=== PATIENT | female | born 1990 | race Caucasian/White ===

== ENCOUNTER 2017-03-14 11:04 | Emergency (ER) | payer BC, OTHER ==
[2017-03-14 11:16] VITALS: BP 134/71
--- NOTE | 2017-03-14 11:40 | EDM.PDOC ---
ED HPI GENERAL MEDICAL PROBLEM - General Chief Complaint: Abdominal Pain Stated Complaint: LOWER ABDOMINAL PAIN Time Seen by Provider: 03/14/17 11:33 Source of Information: Reports: Patient History Limitations: Reports: No Limitations - History of Present Illness INITIAL COMMENTS - FREE TEXT/NARRATIVE: 26-year-old female presents for evaluation treatment of right lower quadrant abdominal pain. Patient reports that the pain started yesterday. It was more mild at first. Started in her right lower quadrant. Patient reports today while at work the pain significantly worsened. Currently complaining of pain to the right lower quadrant that is radiated to the suprapubic area. She reports movement seems to make the pain worse. Reports currently the pain is "not too bad". She states that the pain waxes and wanes. Patient reports associated symptoms of back pain and diaphoresis. She denies any fevers, chills, nausea, vomiting, constipation, diarrhea, dysuria or hematuria. Patient states that she has not had much of an appetite. Her last intake was around 6:30 AM. She have to donut. Last menstrual period was proximally 2 weeks ago. Patient has not had any surgeries or abdomen. Treatments SPEECH PATHOLOGY ASSISTANT: Reports: Other (see below) Other Treatments SPEECH PATHOLOGY ASSISTANT: ibuprofen 800 mg at 0900 right lower quadrant/mid belly button Pain Score (Numeric/FACES): 5 - Related Data Allergies Allergy/AdvReac Type Severity Reaction Status Date / Time No Known Allergies Allergy Verified 03/14/17 11:16 Home Meds: Home Meds . [No Known Home Meds] 12/26/14 [History] Past Medical History - Past Health History Medical/Surgical History: Denies Medical/Surgical History Social & Family History - Family History Family Medical History: Noncontributory - Tobacco Use Smoking Status *Q: Never Smoker - Caffeine Use Caffeine Use: Reports: Coffee, Soda - Recreational Drug Use Recreational Drug Use: No ED ROS GENERAL - Review of Systems Review Of Systems: See Below Constitutional: Reports: Diaphoresis, Decreased Appetite. Denies: Fever GI/Abdominal: Reports: Abdominal Pain (RLQ), Decreased Appetite. Denies: Constipation, Diarrhea, Hematochezia, Melena, Nausea, Vomiting : Reports: Other (LMP 2 weeks ago). Denies: Dysuria, Hematuria ED EXAM, GI/ABD - Physical Exam Exam: See Below Exam Limited By: No Limitations General Appearance: Alert, WD/WN, No Apparent Distress Respiratory/Chest: No Respiratory Distress, Lungs Clear, Normal Breath Sounds Cardiovascular: Normal Peripheral Pulses, Regular Rate, Rhythm, No Murmur GI/Abdominal Exam: Normal Bowel Sounds, Soft, Non-Tender, Other (RLQ tenderness ; + psosas sign, - obturator sign, no pain with heel percussion). No: Guarding , Rebound Neurological: Alert, Oriented, Normal Cognition Psychiatric: Normal Affect, Normal Mood Skin Exam: Warm, Dry, Normal Color Course - Vital Signs Last Recorded V/S: Last Vital Signs Temp 36.3 C 03/14/17 11:12 Pulse 88 03/14/17 11:12 Resp 18 03/14/17 11:12 BP 134/71 03/14/17 11:12 Pulse Ox 100 03/14/17 11:12 - Orders/Labs/Meds Orders: Active Orders 24 hr Category Date Time Status Peripheral IV Care [RC] . DIRECTED Care 03/14/17 11:41 Ordered Abdomen Pelvis w Cont [CT] Stat Exams 03/14/17 11:41 Ordered Sodium Chloride 0.9% [Saline Flush] Med 03/14/17 11:41 Ordered 10 ml FLUSH ASDIRECTED PRN Peripheral IV Insertion Adult [OM.PC] Routine Oth 03/14/17 11:41 Ordered Medication Orders Sodium Chloride (Saline Flush) 10 ml FLUSH ASDIRECTED PRN PRN Reason: Keep Vein Open Last Admin: 03/14/17 13:15 Dose: 10 ml Admin: 03/14/17 12:02 Dose: 10 ml Labs: Laboratory Tests 03/14/17 03/14/17 03/14/17 Range/Units 11:15 11:15 11:25 WBC 8.84 (3.98-10.04) K/mm3 RBC 4.37 (3.98-5.22) M/mm3 Hgb 13.6 (11.2-15.7) gm/L Hct 39.7 (34.1-44.9) % MCV 90.8 (79.4-94.8) fl MCH 31.1 (25.6-32.2) pg MCHC 34.3 (32.2-35.5) g/dl RDW Std Deviation 39.4 (36.4-46.3) fL Plt Count 140 L (182-369) K/mm3 MPV 12.6 H (9.4-12.3) fl Neutrophils % (Manual) 73 H (40-60) % Band Neutrophils % 0 (0-10) % Lymphocytes % (Manual) 26 (20-40) % Atypical Lymphs % 0 % Monocytes % (Manual) 1 L (2-10) % Eosinophils % (Manual) 0 L (0.7-5.8) % Basophils % (Manual) 0 L (0.1-1.2) Platelet Estimate Adequate RBC Morph Comment Normal Sodium 141 (136-145) mEq/L Potassium 3.1 L (3.5-5.1) mEq/L Chloride 104 (98-107) mEq/L Carbon Dioxide 26 (21-32) mEq/L Anion Gap 14.1 (5-15) BUN 9 (7-18) mg/dL Creatinine 0.9 (0.55-1.02) mg/dL Est Cr Clr Drug Dosing 86.27 mL/min Estimated GFR (MDRD) > 60 (>60) mL/min BUN/Creatinine Ratio 10.0 L (14-18) Glucose 93 (74-106) mg/dL Calcium 9.3 (8.5-10.1) mg/dL Total Bilirubin 0.6 (0.2-1.0) mg/dL AST 21 (15-37) U/L ALT 20 (14-59) U/L Alkaline Phosphatase 52 (46-116) U/L C-Reactive Protein < 0.2 (<1.0) mg/dL Total Protein 7.6 (6.4-8.2) g/dl Albumin 4.3 (3.4-5.0) g/dl Globulin 3.3 gm/dL Albumin/Globulin Ratio 1.3 (1-2) Urine Color (Yellow) Urine Appearance (Clear) Urine pH (5.0-8.0) Ur Specific [place] (1.005-1.030) Urine Protein (Negative) Urine Glucose (UA) (Negative) Urine Ketones (Negative) Urine Occult Blood (Negative) Urine Nitrite (Negative) Urine Bilirubin (Negative) Urine Urobilinogen (0.2-1.0) Ur Leukocyte Esterase (Negative) Urine RBC (0-5) /hpf Urine WBC (0-5) /hpf Ur Epithelial Cells (0-5) /hpf Ur Squamous Epith Cells (0-5) /hpf Urine Bacteria (FEW) /hpf Urine Mucus (FEW) /hpf Urine HCG, Qual Negative (NEGATIVE) 03/14/17 Range/Units 11:25 WBC (3.98-10.04) K/mm3 RBC (3.98-5.22) M/mm3 Hgb (11.2-15.7) gm/L Hct (34.1-44.9) % MCV (79.4-94.8) fl MCH (25.6-32.2) pg MCHC (32.2-35.5) g/dl RDW Std Deviation (36.4-46.3) fL Plt Count (182-369) K/mm3 MPV (9.4-12.3) fl Neutrophils % (Manual) (40-60) % Band Neutrophils % (0-10) % Lymphocytes % (Manual) (20-40) % Atypical Lymphs % % Monocytes % (Manual) (2-10) % Eosinophils % (Manual) (0.7-5.8) % Basophils % (Manual) (0.1-1.2) Platelet Estimate RBC Morph Comment Sodium (136-145) mEq/L Potassium (3.5-5.1) mEq/L Chloride (98-107) mEq/L Carbon Dioxide (21-32) mEq/L Anion Gap (5-15) BUN (7-18) mg/dL Creatinine (0.55-1.02) mg/dL Est Cr Clr Drug Dosing mL/min Estimated GFR (MDRD) (>60) mL/min BUN/Creatinine Ratio (14-18) Glucose (74-106) mg/dL Calcium (8.5-10.1) mg/dL Total Bilirubin (0.2-1.0) mg/dL AST (15-37) U/L ALT (14-59) U/L Alkaline Phosphatase (46-116) U/L C-Reactive Protein (<1.0) mg/dL Total Protein (6.4-8.2) g/dl Albumin (3.4-5.0) g/dl Globulin gm/dL Albumin/Globulin Ratio (1-2) Urine Color Dark yellow (Yellow) Urine Appearance Clear (Clear) Urine pH 6.0 (5.0-8.0) Ur Specific [place] > or = 1.030 (1.005-1.030) Urine Protein 1+ H (Negative) Urine Glucose (UA) Negative (Negative) Urine Ketones 1+ H (Negative) Urine Occult Blood Negative (Negative) Urine Nitrite Negative (Negative) Urine Bilirubin 1+ H (Negative) Urine Urobilinogen 0.2 (0.2-1.0) Ur Leukocyte Esterase Trace H (Negative) Urine RBC 0-5 (0-5) /hpf Urine WBC 5-10 H (0-5) /hpf Ur Epithelial Cells 5-10 H (0-5) /hpf Ur Squamous Epith Cells 5-10 H (0-5) /hpf Urine Bacteria Few (FEW) /hpf Urine Mucus Not seen (FEW) /hpf Urine HCG, Qual (NEGATIVE) Meds: Medications Generic Name Dose Route Start Last Admin Trade Name Freq PRN Reason Stop Dose Admin Sodium Chloride 10 ml 03/14/17 11:41 03/14/17 13:15 Saline Flush FLUSH 10 ml ASDIRECTED PRN Administration Keep Vein Open Discontinued Medications Generic Name Dose Route Start Last Admin Trade Name Freq PRN Reason Stop Dose Admin Diatrizoate Meglum/Diatrizoate Sod 90 ml 03/14/17 13:04 03/14/17 13:15 Gastrografin 37% PO 03/14/17 13:05 90 ml ONETIME ONE Administration Sodium Chloride 1,000 mls @ 999 mls/hr 03/14/17 11:41 03/14/17 12:02 Normal Saline IV 03/14/17 12:41 999 mls/hr ONETIME ONE Administration Iopamidol 125 ml 03/14/17 13:04 03/14/17 13:15 Isovue-300 (61%) IVPUSH 03/14/17 13:05 125 ml ONETIME ONE Administration - Radiology Interpretation Free Text/Narrative:: CT of the abdomen and pelvis with IV and oral contrast impression per [facility]: Probable degenerating cyst in the right ovary. Incidental/nonacute findings. CT Results Date: 03/14/17 - Re-Assessments/Exams Free Text/Narrative Re-Assessment/Exam: 03/14/17 14:16 I reviewed the labs and the CT results with the patient. She has declined medication for pain throughout her ER stay. We will discharge her home at this time. Discharge instructions as documented. Departure - Departure Time of Disposition: 14:17 Disposition: Home, Self-Care 01 Condition: Good Clinical Impression: Ovarian cyst - Discharge Information Referrals: PCP,None [Primary Care Provider] - Rosa Maria Hollis PA-C [Ordering Only Provider] - Forms: ED Department Discharge Additional Instructions: [id number] Tylenol or Motrin as needed for pain relief. make sure you are drinking plenty of fluids. Follow-up with your OB provider in the next 2-3 weeks for a recheck of your symptoms. Please return to the ER if your symptoms change or worsen. - My Orders Last 24 Hours: My Active Orders 03/14/17 11:41 Peripheral IV Care [RC] . DIRECTED Abdomen Pelvis w Cont [CT] Stat Sodium Chloride 0.9% [Saline Flush] 10 ml FLUSH ASDIRECTED PRN Peripheral IV Insertion Adult [OM.PC] Routine - Assessment/Plan Last 24 Hours: My Active Orders 03/14/17 11:41 Peripheral IV Care [RC] . DIRECTED Abdomen Pelvis w Cont [CT] Stat Sodium Chloride 0.9% [Saline Flush] 10 ml FLUSH ASDIRECTED PRN Peripheral IV Insertion Adult [OM.PC] Routine
[2017-03-14] MEDS ORDERED: Sodium Chloride 0.9% 1,000 ML IV ONE (11:41)
[2017-03-14] MEDS: Sodium Chloride 0.9% 10 ML Syringe FLUSH PRN ×2 (12:02→13:15)
[2017-03-14] MEDS ORDERED: Diatrizoate Meglumine/Diatrizoate Sodium 37% 120 ML Bottle PO ONE (13:04)
[2017-03-14] MEDS ORDERED: Iopamidol 612 MG/ML 150 ML Bottle IVPUSH ONE (13:04)
--- NOTE | 2017-03-18 10:16 | CT ---
CT abdomen and pelvis Technique: Multiple axial sections were obtained from above the dome of the diaphragm inferiorly through the pubic symphysis. Intravenous and oral contrast was utilized. Delayed images were obtained through the bladder. Comparison: No previous abdominal imaging. Findings: Small portion of the visualized lung bases are clear. Liver shows no focal parenchymal abnormality. Gallbladder contains no calcified gallstones. Spleen appears within normal limits. Adrenal glands show no nodule. Pancreas is within normal limits. Kidneys show symmetric contrast enhancement without abnormality. Aorta shows no aneurysmal dilatation. No retroperitoneal adenopathy or mesenteric abnormalities are seen. Appendix is seen which appears within normal limits. No pelvic mass or adenopathy is seen. No free fluid or inflammatory change is seen within the abdomen or within the pelvis. Delayed images show contrast within the distal ureters and within the bladder. Bone window settings were reviewed which appear within normal limits for the patient's age. Impression: 1. Nothing acute is identified on CT study of the abdomen and pelvis. Diagnostic code #1 I agree with preliminary report issued by [facility] ([facility] report finalized on 03/14/17, 3:09 PM Central Time)
== END 2017-03-14 14:20 | disposition home or self-care (01) ==
LOC: JD.ED 11:04
DX: N83.201 Unspecified ovarian cyst, right side (principal)
CPT/HCPCS: 36415; 74177; 80053; 81001; 81025; 85025; 86140; 96360; 99284; J7040; J7050; Q9963; Q9967; 99283

== ENCOUNTER 2017-12-07 07:19 | Inpatient (IN) | payer BC ==
--- NOTE | 2017-12-07 07:57 | PCM.PREANE ---
Preanesthetic Assessment - Anesthesia/Transfusion/Family Hx Anesthesia History: No Prior Anesthesia Transfusion History: No Prior Transfusion(s) - Review of Systems General: No Symptoms Pulmonary: No Symptoms Cardiovascular: No Symptoms Gastrointestinal: No Symptoms Neurological: No Symptoms Other: Reports: None - Physical Assessment NPO Status Date: 12/07/17 NPO Status Time: 02:00 Pulse: 63 Blood Pressure: 135/83 Height: 1.68 m Weight: 73.028 kg ASA Class: 2 Mental Status: Alert & Oriented x3 Airway Class: Mallampati = 1 Dentition: Reports: Normal Dentition Thyro-Mental Finger Breadths: 3 Mouth Opening Finger Breadths: 3 ROM/Head Extension: Full Lungs: Clear to Auscultation Cardiovascular: Regular Rate - Allergies Allergies/Adverse Reactions: Allergies Allergy/AdvReac Type Severity Reaction Status Date / Time No Known Allergies Allergy Verified 12/07/17 07:57 - Acknowledgements Anesthesia Type Planned: Epidural Pt an Appropriate Candidate for the Planned Anesthesia: Yes Alternatives and Risks of Anesthesia Discussed w Pt/Guardian: Yes Pt/Guardian Understands and Agrees with Anesthesia Plan: Yes PreAnesthesia Questionnaire - Past Health History Medical/Surgical History: Denies Medical/Surgical History - HOME MEDS Home Medications: Home Meds L.acidoph,Paracasei, B.lactis [Probiotic] 1 cap PO DAILY 12/07/17 [History] Pnv No.122/Iron/Folic Acid [ Multi Tablet] 1 each PO DAILY 12/07/17 [ History]
[2017-12-07] MEDS ORDERED: Nalbuphine 20 MG/ML 1 ML Syringe IVPUSH PRN (07:59)
[2017-12-07] MEDS ORDERED: Sodium Chloride 0.9% 10 ML Syringe FLUSH PRN (07:59)
[2017-12-07] MEDS ORDERED: Ondansetron 4 MG/2 ML SDV IVPUSH PRN (07:59)
[2017-12-07] MEDS ORDERED: Lidocaine 1% 50 ML MDV INJECT ONE (07:59)
[2017-12-07] MEDS ORDERED: Oxytocin/Lactated Ringers 10 UNIT/1,000 ML BAG IV SCH ×2 (08:00)
--- NOTE | 2017-12-07 09:18 | PCM.LDHP ---
L&D History of Present Illness - General Date of Service: 12/07/17 Admit Problem/Dx: Patient Status Order with Admit Dx/Problem 12/07/17 08:15 Patient Status [ADT] Routine Admission Diagnosis/Problem Admission Diagnosis/Problem Source of Information: Patient History Limitations: Reports: No Limitations - History of Present Illness Introduction:: 27 year old female here with active labor. Doing well. 40w1d. GBS negative. - Related Data Allergies/Adverse Reactions: Allergies Allergy/AdvReac Type Severity Reaction Status Date / Time No Known Allergies Allergy Verified 12/07/17 07:57 Home Medications: Home Meds L.acidoph,Paracasei, B.lactis [Probiotic] 1 cap PO DAILY 12/07/17 [History] Pnv No.122/Iron/Folic Acid [ Multi Tablet] 1 each PO DAILY 12/07/17 [ History] Past Medical History - Past Health History Medical/Surgical History: Denies Medical/Surgical History Social & Family History - Family History Family Medical History: Noncontributory - Caffeine Use Caffeine Use: Reports: Coffee, Soda H&P Review of Systems - Review of Systems: Review Of Systems: See Below General: Reports: No Symptoms HEENT: Reports: No Symptoms Pulmonary: Reports: No Symptoms Cardiovascular: Reports: No Symptoms Gastrointestinal: Reports: No Symptoms Genitourinary: Reports: No Symptoms Musculoskeletal: Reports: No Symptoms Skin: Reports: No Symptoms Psychiatric: Reports: No Symptoms Neurological: Reports: No Symptoms Hematologic/Lymphatic: Reports: No Symptoms Immunologic: Reports: No Symptoms L&D Exam - Exam Exam: See Below - Vital Signs Vital Signs: Last Vital Signs Temp Pulse 63 12/07/17 08:11 Resp BP 135/83 12/07/17 08:11 Pulse Ox Weight: 73.028 kg - OB Specific Contraction Intensity: Moderate to Strong Movement: Active Heart Tones: Present Heart Rate (FHR) Variability: Moderate (6-25 bmp) Presentation: Vertex - Lopez Score Lopez Score Cervix Position: Midposition Lopez Score Effacement: 51-70% Lopez Score Dilation: 3-4 cm Lopez Score Infant's Station: -2 - Exam General: Alert, Oriented HEENT: PERRLA, Conjunctiva Clear, EACs Clear, EOMI, Hearing Intact, Mucosa Moist & [place], Nares Patent, Normal Nasal Septum, Posterior Pharynx Clear, TMs Clear Neck: Supple, Trachea Midline Lungs: Clear to Auscultation, Normal Respiratory Effort Cardiovascular: Regular Rate, Regular Rhythm GI/Abdominal Exam: Normal Bowel Sounds, Soft, Non-Tender, No Organomegaly, No Distention, No Abnormal Bruit, No Mass, Pelvis Stable Rectal Exam: Normal Exam, Normal Rectal Tone Genitourinary: Normal external exam, Normal bimanual exam, Normal speculum exam Extremities: Normal Inspection, Normal Range of Motion, Non-Tender, No Pedal Edema, Normal Capillary Refill Skin: Warm, Dry, Intact Neurological: Cranial Nerves Intact, Reflexes Equal Bilateral Psychiatric: Alert, Normal Affect, Normal Mood - Patient Data Lab Results Last 24 hrs: Laboratory Results - last 24 hr 12/07/17 12/07/17 Range/Units 08:30 08:30 WBC 9.01 (3.98-10.04) K/mm3 RBC 3.88 L (3.98-5.22) M/mm3 Hgb 11.8 (11.2-15.7) gm/L Hct 35.7 (34.1-44.9) % MCV 92.0 (79.4-94.8) fl MCH 30.4 (25.6-32.2) pg MCHC 33.1 (32.2-35.5) g/dl RDW Std Deviation 41.3 (36.4-46.3) fL Plt Count 101 L (182-369) K/mm3 MPV 12.3 (9.4-12.3) fl Blood Type O POSITIVE Result Diagrams: 12/07/17 08:30 Problem List Initiated/Reviewed/Updated: Yes Orders Last 24hrs: Active Orders 24 hr Category Date Time Status Patient Status [ADT] Routine ADT 12/07/17 08:15 Active Activity as Tolerated [RC] PFP Care 12/07/17 07:59 Active Communication Order [RC] ASDIRECTED Care 12/07/17 07:59 Active Heart Tones [RC] ASDIRECTED Care 12/07/17 07:59 Active Non Stress Test [RC] PER UNIT ROUTINE Care 12/07/17 07:59 Active Notify Provider [RC] PFP Care 12/07/17 07:59 Active Notify Provider [RC] PRN Care 12/07/17 07:59 Active Peripheral IV Care [RC] . DIRECTED Care 12/07/17 07:59 Active Pump Management, Intrathecal [RC] ASDIRECTED Care 12/07/17 08:04 Active Urinary Catheter Assessment [RC] ASDIRECTED Care 12/07/17 07:59 Active Vital Signs [RC] PER UNIT ROUTINE Care 12/07/17 07:59 Active Regular Diet [DIET] Diet 12/07/17 Lunch Active PATIENT RETYPE [BBK] Stat Lab 12/07/17 08:30 Results RAPID PLASMA REAGIN,RPR [CHEM] Routine Lab 12/07/17 07:59 Ordered TYPE AND SCREEN [BBK] Stat Lab 12/07/17 08:30 Results Lactated Ringers [Ringers, Lactated] 1,000 ml Med 12/07/17 08:00 Active IV ASDIRECTED Nalbuphine [Nubain] Med 12/07/17 07:59 Active 10 mg IVPUSH Q2H PRN Ondansetron [Zofran] Med 12/07/17 07:59 Active 4 mg IVPUSH Q4H PRN Oxytocin/Lactated Ringers [Pitocin in LR 10 Units/1,000 Med 12/07/17 08:00 Active ML] 10 unit in 1,000 ml IV .CONTINUOUS Oxytocin/Lactated Ringers [Pitocin in LR 10 Units/1,000 Med 12/07/17 08:00 Active ML] 10 unit in 1,000 ml IV TITRATE Sodium Chloride 0.9% [Saline Flush] Med 12/07/17 07:59 Active 10 ml FLUSH ASDIRECTED PRN Electronic Heart Tones Ext w TOCO [WOMSER] Oth 12/07/17 07:59 Ordered Routine Electronic Heart Tones Internal [WOMSER] Per Unit Oth 12/07/17 07:59 Ordered Routine Peripheral IV Insertion Adult [OM.PC] Routine Oth 12/07/17 07:59 Ordered Resuscitation Status Routine Resus Stat 12/07/17 07:59 Ordered Medication Orders Lactated Ringer's (Ringers, Lactated) 1,000 mls @ 100 mls/hr IV ASDIRECTED REDD Oxytocin/Lactated Ringer's (Pitocin In Lr 10 Units/1,000 Ml) 10 unit in 1,000 mls @ 12 mls/hr IV TITRATE REDD; Protocol Oxytocin/Lactated Ringer's (Pitocin In Lr 10 Units/1,000 Ml) 10 unit in 1,000 mls @ 100 mls/hr IV .CONTINUOUS REDD; Protocol Nalbuphine HCl (Nubain) 10 mg IVPUSH Q2H PRN PRN Reason: pain Ondansetron HCl (Zofran) 4 mg IVPUSH Q4H PRN PRN Reason: Nausea/Vomiting Sodium Chloride (Saline Flush) 10 ml FLUSH ASDIRECTED PRN PRN Reason: Keep Vein Open Assessment/Plan Comment:: 27 year old here with painful contractions and active labor. Doing well. 4-5 cm. Monitor. AROM per pt wishes. Anticipate .
[2017-12-07] MEDS ORDERED: Lidocaine 1% 50 ML MDV ONE (15:44)
[2017-12-07] MEDS: Lactated Ringers 1,000 ML IV SCH ×4 (18:24→21:41)
[2017-12-07] MEDS ORDERED: fentaNYL 100 MCG/2 ML SDV ONE (18:38)
[2017-12-07] MEDS ORDERED: fentaNYL 100 MCG/2 ML SDV EPIDUR PRN (18:57)
[2017-12-07] MEDS ORDERED: Bupivacaine/fentaNYL/NS 100 ML Bag EPIDUR SCH (19:00)
--- NOTE | 2017-12-08 00:49 | PCM.SN ---
- Free Text/Narrative Note: Stage I - Patient presented in active labor. AROM at 5 cm. Epidural for anesthesia. Progressed to complete with overall reassuring heart tones. Stage II - of viable female. Weight pending at time of note, APGARS 7/8 at 0015. Head delivered in controlled manner over intact perineum. Body and shoulders followed atraumatically. Minimal cry at delivery. To warmer after initial stimulation. Stage III - of intact placenta. 3vc. No laceration. EBL 120.
[2017-12-08] MEDS ORDERED: Bupivacaine 0.25% 10 ML SDV ONE (01:00)
[2017-12-08] MEDS ORDERED: Benzocaine/Menthol 20%-0.5% Spray 56 GM Canister TOP PRN (01:03)
[2017-12-08] MEDS ORDERED: Docusate Sodium 100 MG Cap PO PRN (01:03)
[2017-12-08] MEDS ORDERED: Witch Hazel Medicated Pads 100/Jar TOP PRN (01:03)
[2017-12-08] MEDS ORDERED: Lanolin 100% Cream 7 GM Tube TOP PRN (01:03)
[2017-12-08] MEDS: Ibuprofen 600 MG Tab PO PRN ×3 (01:59→15:04)
[2017-12-08] MEDS ORDERED: Ondansetron 4 MG/2 ML SDV IVPUSH PRN (02:57)
[2017-12-08] MEDS ORDERED: Measles, Mumps & Rubella Vaccine 0.5 ML SDV SUBCUT ONE (16:14)
--- NOTE | 2017-12-08 17:23 | PCM48HPAN ---
Post Anesthesia Note - EVALUATION WITHIN 48HRS OF ANESTHETIC Vital Signs in Normal Range: Yes Patient Participated in Evaluation: Yes Respiratory Function Stable: Yes Airway Patent: Yes Cardiovascular Function Stable: Yes Hydration Status Stable: Yes Pain Control Satisfactory: Yes Nausea and Vomiting Control Satisfactory: Yes Mental Status Recovered: Yes - COMMENTS/OBSERVATIONS Free Text/Narrative:: Denies and complications at this time. No further questions.
[2017-12-09] MEDS: Ibuprofen 600 MG Tab PO PRN ×2 (00:12→15:18)
--- NOTE | 2017-12-09 06:26 | PCM.PNPP ---
- General Info Date of Service: 12/09/17 Functional Status: Reports: Pain Controlled - Review of Systems General: Reports: No Symptoms HEENT: Reports: No Symptoms Pulmonary: Reports: No Symptoms Cardiovascular: Reports: No Symptoms Gastrointestinal: Reports: No Symptoms Genitourinary: Reports: No Symptoms Musculoskeletal: Reports: No Symptoms Skin: Reports: No Symptoms Neurological: Reports: No Symptoms Psychiatric: Reports: No Symptoms - General Info Date of Service: 12/09/17 - Patient Data Vital Signs - Most Recent: Last Vital Signs Temp 36.7 C 12/09/17 04:02 Pulse 60 12/09/17 04:02 Resp 14 12/09/17 04:02 BP 114/70 12/09/17 04:02 Pulse Ox 97 12/09/17 04:02 Weight - Most Recent: 73.028 kg I&O - Last 24 Hours: Intake & Output 12/08/17 12/08/17 12/09/17 14:59 22:59 06:59 Intake Total 180 Balance 180 Med Orders - Current: Current Medications Benzocaine/Menthol (Dermoplast Pain Relief [place]) 0 gm TOP ASDIRECTED PRN PRN Reason: Perineal Comfort Measure Last Admin: 12/08/17 01:57 Dose: 1 canister Docusate Sodium (Colace) 100 mg PO BID PRN PRN Reason: Constipation Emollient Ointment (Lansinoh Hpa) 0 gm TOP ASDIRECTED PRN PRN Reason: Sore Nipples Last Admin: 12/09/17 00:12 Dose: 1 tube Ibuprofen (Motrin) 600 mg PO Q6H PRN PRN Reason: Mild pain or fever Last Admin: 12/09/17 00:12 Dose: 600 mg Ondansetron HCl (Zofran) 4 mg IVPUSH Q6HR PRN PRN Reason: Nausea/Vomiting Last Admin: 12/08/17 03:07 Dose: 4 mg Witch Suzy (Tucks) 1 pad TOP ASDIRECTED PRN PRN Reason: Hemorrhoid pain Last Admin: 12/08/17 01:58 Dose: 1 tub Discontinued Medications Bupivacaine HCl (Sensorcaine-Mpf 0.25%) 10 ml .ROUTE .STK-MED ONE Stop: 12/08/17 01:01 Fentanyl (Sublimaze) Confirm Administered Dose 100 mcg .ROUTE .STK-MED ONE Stop: 12/07/17 18:39 Last Admin: 12/07/17 18:58 Dose: Not Given Fentanyl (Sublimaze) 100 mcg EPIDUR Q3H PRN PRN Reason: Pain Last Admin: 12/07/17 19:31 Dose: 100 mcg Fentanyl/Bupivacaine HCl (Fentanyl/Bupivacaine/Ns 2 Mcg-0.125% 100 Ml) 100 ml EPIDUR ASDIRECTED REDD Last Admin: 12/07/17 19:30 Dose: 100 ml Lactated Ringer's (Ringers, Lactated) 1,000 mls @ 100 mls/hr IV ASDIRECTED REDD Last Admin: 12/07/17 21:41 Dose: 100 mls/hr Oxytocin/Lactated Ringer's (Pitocin In Lr 10 Units/1,000 Ml) 10 unit in 1,000 mls @ 12 mls/hr IV TITRATE REDD; Protocol Oxytocin/Lactated Ringer's (Pitocin In Lr 10 Units/1,000 Ml) 10 unit in 1,000 mls @ 100 mls/hr IV .CONTINUOUS REDD; Protocol Last Admin: 12/08/17 00:20 Dose: 500 mls/hr Lidocaine HCl (Xylocaine 1%) 50 ml INJECT ONETIME ONE Stop: 12/07/17 08:00 Last Admin: 12/08/17 09:08 Dose: Not Given Lidocaine HCl (Xylocaine 1%) Confirm Administered Dose 50 ml .ROUTE .STK-MED ONE Stop: 12/07/17 15:45 Last Admin: 12/07/17 16:57 Dose: Not Given Lidocaine HCl (Xylocaine-Mpf 1%) 5 ml .ROUTE .STK-MED ONE Stop: 12/08/17 01:01 Measles/Mumps/Rubella Vaccine Live (M-M-R Ii Vaccine) 0.5 ml SUBCUT .ONCE ONE Stop: 12/08/17 16:15 Nalbuphine HCl (Nubain) 10 mg IVPUSH Q2H PRN PRN Reason: pain Last Admin: 12/07/17 15:23 Dose: 10 mg Ondansetron HCl (Zofran) 4 mg IVPUSH Q4H PRN PRN Reason: Nausea/Vomiting Sodium Chloride (Saline Flush) 10 ml FLUSH ASDIRECTED PRN PRN Reason: Keep Vein Open - Interaction Disposition, : in Room with Family Infant Feeding: Breastfed Infant; Nursed Well Support Person: Significant Other - Recovery Exam Fundal Tone: Firm Fundal Level: At Umbilicus Fundal Placement: Midline Lochia Amount: Small Lochia Color: Rubra/Red Perineum Description: Intact, Minimal Bruising/Swelling Episiotomy/Laceration: None Bladder Status: Nonpalpable Urinary Elimination: Voided - Exam General: Alert, Oriented HEENT: Pupils Equal Neck: Supple Lungs: Clear to Auscultation, Normal Respiratory Effort Cardiovascular: Regular Rate, Regular Rhythm GI/Abdominal Exam: Normal Bowel Sounds, Soft, Non-Tender, No Organomegaly, No Distention, No Abnormal Bruit, No Mass, Pelvis Stable Extremities: Normal Inspection, Normal Range of Motion, Non-Tender, No Pedal Edema, Normal Capillary Refill Skin: Warm, Dry, Intact Neurological: No New Focal Deficit Psy/Mental Status: Alert, Normal Affect, Normal Mood - Problem List Review Problem List Initiated/Reviewed/Updated: Yes - My Orders Last 24 Hours: My Active Orders 12/08/17 16:14 Vaccines to be Administered [RC] PER UNIT ROUTINE 12/09/17 01:03 Heat Therapy [OM.PC] PRN 12/09/17 Breakfast Regular Diet [DIET] - Assessment Assessment:: PPD1 Doing well. Nursing better. - Plan Plan:: PPD1 Doing great. No complaints or issues. Probable discharge tomorrow as baby had initial de saturation issues.
[2017-12-10] MEDS: Ibuprofen 600 MG Tab PO PRN (01:20)
[2017-12-10 08:52] VITALS: BP 127/85
== END 2017-12-10 11:50 | disposition home or self-care (01) | DRG 560 ==
LOC: JD.OBCHECK 07:19 → JD.OB 07:21 → JD.OBCHECK 08:07 → JD.OB 12-08 00:15 → OBSVTOIN 12-08 00:15
PROVIDERS: ADMIT Obstetrics & Gynecology; ATTEND Obstetrics & Gynecology
PROC: 00HU33Z Insertion of Infusion Device into Spinal Canal, Percutaneous Approach (ICD-10-PCS; 2017-12-07)
PROC: 3E0R3BZ Introduction of Anesthetic Agent into Spinal Canal, Percutaneous Approach (ICD-10-PCS; 2017-12-07)
PROC: 10907ZC Drainage of Amniotic Fluid, Therapeutic from Products of Conception, Via Natural or Artificial Opening (ICD-10-PCS; principal; 2017-12-08)
PROC: 10E0XZZ Delivery of Products of Conception, External Approach (ICD-10-PCS; principal; 2017-12-08)
DX: O80 Encounter for full-term uncomplicated delivery (principal); Z3A.40 40 weeks gestation of pregnancy
CPT/HCPCS: 01967; 36415; 51702; 59025; 59409; 85027; 86592; 86850; 86900; 86901; A9270-GY; J2300; J2405; J2590; J3010; J3490; J7120

== ENCOUNTER 2019-08-31 05:34 | Inpatient (IN) | payer OTHER ==
[~2019-08-31 05:34] MED LIST: Bupivacaine 0.25% 10 ML SDV ONE
[2019-08-31] MEDS ORDERED: Sodium Chloride 0.9% 10 ML Syringe FLUSH PRN (06:13)
[2019-08-31] MEDS ORDERED: Nalbuphine 10 MG/ML Syringe IVPUSH PRN (06:13)
[2019-08-31] MEDS ORDERED: Oxytocin/Lactated Ringers 10 UNIT/1,000 ML BAG IV SCH (06:15)
--- NOTE | 2019-08-31 07:10 | PCM.LDHP ---
L&D History of Present Illness - General Date of Service: 08/31/19 Admit Problem/Dx: Patient Status Order with Admit Dx/Problem 08/31/19 06:13 Patient Status [ADT] Routine Admission Diagnosis/Problem Admission Diagnosis/Problem Source of Information: Patient History Limitations: Reports: No Limitations - History of Present Illness Introduction:: Patient is a 29 y/o at 40 4/7 wks who presents in labor. 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 Doing well currently. 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): Hematologic History: Reports: Other (See Below) Other Hematologic History: gestational thrombocytopenia Social & Family History - Family History Family Medical History: Noncontributory - Tobacco Use Smoking Status *Q: Never Smoker - Caffeine Use Caffeine Use: Reports: Coffee, Soda - Alcohol Use Alcohol Use History: No - Recreational Drug Use Recreational Drug Use: No H&P Review of Systems - Review of Systems: Review Of Systems: See Below General: Reports: No Symptoms Pulmonary: Reports: No Symptoms Cardiovascular: Reports: No Symptoms Gastrointestinal: Reports: Abdominal Pain (contractions) Genitourinary: Reports: No Symptoms Musculoskeletal: Reports: No Symptoms Psychiatric: Reports: No Symptoms L&D Exam - Exam Exam: See Below - Vital Signs Vital Signs: Last Vital Signs Temp 37.2 C 08/31/19 06:00 Pulse 80 08/31/19 06:00 Resp 16 08/31/19 06:00 BP 131/85 08/31/19 06:00 Pulse Ox 98 08/31/19 06:00 Weight: 78.29 kg - OB Specific Contraction Intensity: Moderate Movement: Active Heart Tones: Present Heart Tones per Min: 130 Heart Rate (FHR) Variability: Moderate (6-25 bmp) Presentation: Vertex - Lopez Score Lopez Score Cervix Position: Midposition Lopez Score Consistency: Soft Lopez Score Effacement: >80% Lopez Score Dilation: > 5 cm Lopez Score 's Station: -1 ,0 Lopez Score Total: 11 - Exam General: Alert, Oriented, Cooperative Lungs: Clear to Auscultation, Normal Respiratory Effort Cardiovascular: Regular Rate, Regular Rhythm GI/Abdominal Exam: Soft, Non-Tender Genitourinary: Normal external exam Extremities: Normal Inspection Skin: Warm, Dry, Intact - Patient Data Lab Results Last 24 hrs: Laboratory Results - last 24 hr 08/31/19 Range/Units 06:15 WBC 9.57 (3.98-10.04) K/mm3 RBC 4.41 (3.98-5.22) M/mm3 Hgb 13.8 D (11.2-15.7) gm/dl Hct 41.3 (34.1-44.9) % MCV 93.7 (79.4-94.8) fl MCH 31.3 (25.6-32.2) pg MCHC 33.4 (32.2-35.5) g/dl RDW Std Deviation 42.5 (36.4-46.3) fL Plt Count 96 L (182-369) K/mm3 MPV 13.4 H (9.4-12.3) fl Neut % (Auto) 73.9 H (34.0-71.1) % Lymph % (Auto) 15.4 L (19.3-51.7) % [place] % (Auto) 9.9 (4.7-12.5) % Eos % (Auto) 0.2 L (0.7-5.8) Baso % (Auto) 0.1 (0.1-1.2) % Neut # (Auto) 7.07 H (1.56-6.13) K/mm3 Lymph # (Auto) 1.47 (1.18-3.74) K/mm3 [place] # (Auto) 0.95 H (0.24-0.36) K/mm3 Eos # (Auto) 0.02 L (0.04-0.36) K/mm3 Baso # (Auto) 0.01 (0.01-0.08) K/mm3 Manual Slide Review Abnormal smear Result Diagrams: 08/31/19 06:15 - Problem List (1) 40 weeks gestation of SNOMED Code(s): 81558914 ICD Code: Z3A.40 - 40 WEEKS GESTATION OF Status: Acute Current Visit: Yes (2) Normal labor SNOMED Code(s): 46616758 ICD Code: O80 - ENCOUNTER FOR FULL-TERM UNCOMPLICATED DELIVERY; Z37.9 - OUTCOME OF DELIVERY, UNSPECIFIED Status: Acute Current Visit: Yes (3) Gestational thrombocytopenia SNOMED Code(s): 924660195 ICD Code: O99.119 - OTH DIS OF BLD/BLD-FORM ORG/IMMUN MECHNSM COMP PREG,UNSP TRI; D69.6 - THROMBOCYTOPENIA, UNSPECIFIED Status: Acute Current Visit: Yes Qualifiers: Trimester: third trimester Qualified Code(s): O99.113 - Other diseases of the blood and blood-forming organs and certain disorders involving the immune mechanism complicating , third trimester; D69.6 - Thrombocytopenia, unspecified Problem List Initiated/Reviewed/Updated: Yes Orders Last 24hrs: Active Orders 24 hr Category Date Time Status Patient Status [ADT] Routine ADT 08/31/19 06:13 Active Activity as Tolerated [RC] PFP Care 08/31/19 06:13 Active Communication Order [RC] ASDIRECTED Care 08/31/19 06:13 Active Heart Tones [RC] ASDIRECTED Care 08/31/19 06:13 Active Non Stress Test [RC] PER UNIT ROUTINE Care 08/31/19 06:13 Active Notify Provider [RC] PFP Care 08/31/19 06:13 Active Notify Provider [RC] PRN Care 08/31/19 06:13 Active Peripheral IV Care [RC] . DIRECTED Care 08/31/19 06:13 Active Vital Signs [RC] PER UNIT ROUTINE Care 08/31/19 06:13 Active BLOOD BANK HOLD SPECIMEN [BBK] Stat Lab 08/31/19 06:13 Ordered RAPID PLASMA REAGIN,RPR [CHEM] Routine Lab 08/31/19 06:15 Received Lactated Ringers [Ringers, Lactated] 1,000 ml Med 08/31/19 06:15 Active IV ASDIRECTED Nalbuphine [Nubain] Med 08/31/19 06:13 Active 10 mg IVPUSH Q2H PRN Oxytocin/Lactated Ringers [Pitocin in LR 10 Units/1,000 Med 08/31/19 06:15 Active ML] 10 unit in 1,000 ml IV .CONTINUOUS Sodium Chloride 0.9% [Saline Flush] Med 08/31/19 06:13 Active 10 ml FLUSH ASDIRECTED PRN Electronic Heart Tones Ext w TOCO [WOMSER] Oth 08/31/19 06:13 Ordered Routine Electronic Heart Tones Internal [WOMSER] Per Unit Ot 08/31/19 06:13 Ordered Routine Peripheral IV Insertion Adult [OM.PC] Routine Oth 08/31/19 06:13 Ordered Resuscitation Status Routine Resus Stat 08/31/19 06:13 Ordered Medication Orders Lactated Ringer's (Ringers, Lactated) 1,000 mls @ 100 mls/hr IV ASDIRECTED REDD Oxytocin/Lactated Ringer's (Pitocin In Lr 10 Units/1,000 Ml) 10 unit in 1,000 mls @ 500 mls/hr IV .CONTINUOUS REDD Nalbuphine HCl (Nubain) 10 mg IVPUSH Q2H PRN PRN Reason: Pain Sodium Chloride (Saline Flush) 10 ml FLUSH ASDIRECTED PRN PRN Reason: Keep Vein Open Assessment/Plan Comment:: * Labs done. Plts 96K. Will have anesthesia visit about pros/cons of epidural * GBS negative. No need for antibiotics * Anticipate
[2019-08-31] MEDS: Lactated Ringers 1,000 ML IV SCH ×3 (07:16→12:31)
[2019-08-31] MEDS ORDERED: fentaNYL 100 MCG/2 ML SDV EPIDUR PRN (07:19)
[2019-08-31] MEDS ORDERED: Bupivacaine/fentaNYL/NS 100 ML Bag EPIDUR PRN (07:19)
[2019-08-31] MEDS ORDERED: ePHEDrine 50 MG/ML SDV IVPUSH PRN (07:19)
[2019-08-31] MEDS ORDERED: diphenhydrAMINE 50 MG/ML SDV IVPUSH PRN (07:19)
--- NOTE | 2019-08-31 12:13 | PCM.PNLD ---
Labor Progress Note - VS & Meds Vital Signs: Last Vital Signs Temp 37.2 C 08/31/19 06:00 Pulse 80 08/31/19 06:00 Resp 16 08/31/19 06:00 BP 131/85 08/31/19 06:00 Pulse Ox 98 08/31/19 06:00 Active Medications: Current Medications Diphenhydramine HCl (Benadryl) 25 mg IVPUSH Q6H PRN PRN Reason: pruritis Ephedrine Sulfate (Ephedrine Sulfate) 5 mg IVPUSH ASDIRECTED PRN PRN Reason: Hypotension Fentanyl (Sublimaze) 100 mcg EPIDUR Q3H PRN PRN Reason: Pain Fentanyl/Bupivacaine HCl (Fentanyl/Bupivacaine/Ns 2 Mcg-0.125% 100 Ml) 100 ml EPIDUR ASDIRECTED PRN PRN Reason: Pain Lactated Ringer's (Ringers, Lactated) 1,000 mls @ 100 mls/hr IV ASDIRECTED REDD Last Admin: 08/31/19 09:11 Dose: 100 mls/hr Oxytocin/Lactated Ringer's (Pitocin In Lr 10 Units/1,000 Ml) 10 unit in 1,000 mls @ 500 mls/hr IV .CONTINUOUS REDD Nalbuphine HCl (Nubain) 10 mg IVPUSH Q2H PRN PRN Reason: Pain Sodium Chloride (Saline Flush) 10 ml FLUSH ASDIRECTED PRN PRN Reason: Keep Vein Open - Uterine Contractions Uterine Monitoring Mode: External [place] Contraction Intensity: Moderate - Monitoring Monitor Mode: External Ultrasound Heart Rate (FHR) Baseline: 140 Heart Rate (FHR) Variability: Moderate (6-25 bmp) Accelerations: Present, 15x15 Decelerations: None Strip Review: Category I - Vaginal Exam Dilation (cm): 9 Effacement (Percent): 90 Station: -1 Cervical Position: Anterior - Labor Progress (Free Text) Labor Progress: Doing well. Just finished spinal. AROM done with release of large amount of clear fluid. Continue present management
--- NOTE | 2019-08-31 12:19 | PCM.PREANE ---
Preanesthetic Assessment - Procedure Proposed Procedure: Labor Spinal - Anesthesia/Transfusion/Family Hx Anesthesia History: Prior Anesthesia Without Reaction Family History of Anesthesia Reaction: No Transfusion History: No Prior Transfusion(s) - Review of Systems General: No Symptoms Pulmonary: No Symptoms Cardiovascular: No Symptoms Gastrointestinal: No Symptoms Neurological: No Symptoms Other: Reports: None (Thrombocytopenia of ) - Physical Assessment Vital Signs: Last Vital Signs Temp 37.2 C 08/31/19 06:00 Pulse 80 08/31/19 06:00 Resp 16 08/31/19 06:00 BP 131/85 08/31/19 06:00 Pulse Ox 98 08/31/19 06:00 Height: 1.68 m Weight: 78.29 kg ASA Class: 2 Mental Status: Alert & Oriented x3 Airway Class: Mallampati = 1 Dentition: Reports: Normal Dentition Thyro-Mental Finger Breadths: 3 Mouth Opening Finger Breadths: 3 ROM/Head Extension: Full Lungs: Clear to Auscultation, Normal Respiratory Effort Cardiovascular: Regular Rate, Regular Rhythm - Lab Values: Laboratory Last Values WBC 9.57 K/mm3 (3.98-10.04) 08/31/19 06:15 RBC 4.41 M/mm3 (3.98-5.22) 08/31/19 06:15 Hgb 13.8 gm/dl (11.2-15.7) D 08/31/19 06:15 Hct 41.3 % (34.1-44.9) 08/31/19 06:15 MCV 93.7 fl (79.4-94.8) 08/31/19 06:15 MCH 31.3 pg (25.6-32.2) 08/31/19 06:15 MCHC 33.4 g/dl (32.2-35.5) 08/31/19 06:15 RDW Std Deviation 42.5 fL (36.4-46.3) 08/31/19 06:15 Plt Count 96 K/mm3 (182-369) L 08/31/19 06:15 MPV 13.4 fl (9.4-12.3) H 08/31/19 06:15 Neut % (Auto) 73.9 % (34.0-71.1) H 08/31/19 06:15 Lymph % (Auto) 15.4 % (19.3-51.7) L 08/31/19 06:15 [place] % (Auto) 9.9 % (4.7-12.5) 08/31/19 06:15 Eos % (Auto) 0.2 (0.7-5.8) L 08/31/19 06:15 Baso % (Auto) 0.1 % (0.1-1.2) 08/31/19 06:15 Neut # (Auto) 7.07 K/mm3 (1.56-6.13) H 08/31/19 06:15 Lymph # (Auto) 1.47 K/mm3 (1.18-3.74) 08/31/19 06:15 [place] # (Auto) 0.95 K/mm3 (0.24-0.36) H 08/31/19 06:15 Eos # (Auto) 0.02 K/mm3 (0.04-0.36) L 08/31/19 06:15 Baso # (Auto) 0.01 K/mm3 (0.01-0.08) 08/31/19 06:15 Manual Slide Review Abnormal smear 08/31/19 06:15 Blood Type O POSITIVE 08/31/19 06:15 Gel Antibody Screen Negative 08/31/19 06:15 - Allergies Allergies/Adverse Reactions: Allergies Allergy/AdvReac Type Severity Reaction Status Date / Time No Known Allergies Allergy Verified 08/31/19 06:12 - Acknowledgements Anesthesia Type Planned: Spinal Pt an Appropriate Candidate for the Planned Anesthesia: Yes Alternatives and Risks of Anesthesia Discussed w Pt/Guardian: Yes Pt/Guardian Understands and Agrees with Anesthesia Plan: Yes PreAnesthesia Questionnaire - Past Health History Medical/Surgical History: Denies Medical/Surgical History Gastrointestinal History: Reports: Other (See Below) Other Gastrointestinal History: 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: Hematologic History: Reports: Other (See Below) Other Hematologic History: gestational thrombocytopenia - SUBSTANCE USE Smoking Status *Q: Never Smoker Recreational Drug Use History: No - HOME MEDS Home Medications: Home Meds L.acidoph,Paracasei, B.lactis [Probiotic] 1 cap PO DAILY 12/07/17 [History] No122/Iron/Folic Acid [ Multi Tablet] 1 each PO DAILY 12/07/17 [History] - CURRENT (IN HOUSE) MEDS Current Meds: Current Medications Diphenhydramine HCl (Benadryl) 25 mg IVPUSH Q6H PRN PRN Reason: pruritis Ephedrine Sulfate (Ephedrine Sulfate) 5 mg IVPUSH ASDIRECTED PRN PRN Reason: Hypotension Fentanyl (Sublimaze) 100 mcg EPIDUR Q3H PRN PRN Reason: Pain Fentanyl/Bupivacaine HCl (Fentanyl/Bupivacaine/Ns 2 Mcg-0.125% 100 Ml) 100 ml EPIDUR ASDIRECTED PRN PRN Reason: Pain Lactated Ringer's (Ringers, Lactated) 1,000 mls @ 100 mls/hr IV ASDIRECTED REDD Last Admin: 08/31/19 09:11 Dose: 100 mls/hr Oxytocin/Lactated Ringer's (Pitocin In Lr 10 Units/1,000 Ml) 10 unit in 1,000 mls @ 500 mls/hr IV .CONTINUOUS REDD Nalbuphine HCl (Nubain) 10 mg IVPUSH Q2H PRN PRN Reason: Pain Sodium Chloride (Saline Flush) 10 ml FLUSH ASDIRECTED PRN PRN Reason: Keep Vein Open
--- NOTE | 2019-08-31 15:33 | PCM.DEL ---
L & D Note - General Info Date of Service: 08/31/19 - Delivery Note Labor: Spontaneous Delivery Outcome: Livebirth Delivery Method: Spontaneous Vaginal Delivery-Single Delivery Mode: Spontaneous Presentation: Right Occiput Anterior (STEPHANIE) Nuchal Cord: None Anesthesia Type: Spinal Amniotic Fluid Description: Clear Episiotomy Type: None Laceration: None Placenta: Intact, Spontaneous Cord: 3 Vessels Estimated Blood Loss: 100 : Bulb Syringe, Stimulated, Warmed, [place] Used, Warmer Used Delivery Comments (Free Text/Narrative):: Patient found to be complete and began pushing. With maternal pushing effort head delivered from an STEPHANIE presentation. No nuchal cord present. With gentle downward traction the shoulders and body delivered. placed on maternal abdomen. Cord clamped and cut. Cord blood obtained. Placenta allowed time to separate and expelled intact. Inspection of the perineum showed no lacerations. - General Info Date of Service: 08/31/19 - Patient Data Vitals - Most Recent: Last Vital Signs Temp 37.2 C 08/31/19 06:00 Pulse 80 08/31/19 06:00 Resp 16 08/31/19 06:00 BP 131/85 08/31/19 06:00 Pulse Ox 98 08/31/19 06:00 Weight - Most Recent: 78.29 kg I&O - Last 24 Hours: Intake & Output 08/31/19 08/31/19 08/31/19 06:59 14:59 22:59 Intake Total 1999 Balance 1999 Lab Results Last 24 Hours: Laboratory Results - last 24 hr 08/31/19 08/31/19 Range/Units 06:15 06:15 WBC 9.57 (3.98-10.04) K/mm3 RBC 4.41 (3.98-5.22) M/mm3 Hgb 13.8 D (11.2-15.7) gm/dl Hct 41.3 (34.1-44.9) % MCV 93.7 (79.4-94.8) fl MCH 31.3 (25.6-32.2) pg MCHC 33.4 (32.2-35.5) g/dl RDW Std Deviation 42.5 (36.4-46.3) fL Plt Count 96 L (182-369) K/mm3 MPV 13.4 H (9.4-12.3) fl Neut % (Auto) 73.9 H (34.0-71.1) % Lymph % (Auto) 15.4 L (19.3-51.7) % [place] % (Auto) 9.9 (4.7-12.5) % Eos % (Auto) 0.2 L (0.7-5.8) Baso % (Auto) 0.1 (0.1-1.2) % Neut # (Auto) 7.07 H (1.56-6.13) K/mm3 Lymph # (Auto) 1.47 (1.18-3.74) K/mm3 [place] # (Auto) 0.95 H (0.24-0.36) K/mm3 Eos # (Auto) 0.02 L (0.04-0.36) K/mm3 Baso # (Auto) 0.01 (0.01-0.08) K/mm3 Manual Slide Review Abnormal smear Blood Type O POSITIVE Gel Antibody Screen Negative Med Orders - Current: Current Medications Diphenhydramine HCl (Benadryl) 25 mg IVPUSH Q6H PRN PRN Reason: pruritis Ephedrine Sulfate (Ephedrine Sulfate) 5 mg IVPUSH ASDIRECTED PRN PRN Reason: Hypotension Fentanyl (Sublimaze) 100 mcg EPIDUR Q3H PRN PRN Reason: Pain Fentanyl/Bupivacaine HCl (Fentanyl/Bupivacaine/Ns 2 Mcg-0.125% 100 Ml) 100 ml EPIDUR ASDIRECTED PRN PRN Reason: Pain Lactated Ringer's (Ringers, Lactated) 1,000 mls @ 100 mls/hr IV ASDIRECTED REDD Last Admin: 08/31/19 12:31 Dose: 100 mls/hr Oxytocin/Lactated Ringer's (Pitocin In Lr 10 Units/1,000 Ml) 10 unit in 1,000 mls @ 500 mls/hr IV .CONTINUOUS REDD Last Admin: 08/31/19 14:26 Dose: 500 mls/hr Nalbuphine HCl (Nubain) 10 mg IVPUSH Q2H PRN PRN Reason: Pain Sodium Chloride (Saline Flush) 10 ml FLUSH ASDIRECTED PRN PRN Reason: Keep Vein Open - Problem List & Annotations (1) 40 weeks gestation of SNOMED Code(s): 66507618 Code(s): Z3A.40 - 40 WEEKS GESTATION OF Status: Acute Current Visit: Yes (2) Normal labor SNOMED Code(s): 09897662 Code(s): O80 - ENCOUNTER FOR FULL-TERM UNCOMPLICATED DELIVERY; Z37.9 - OUTCOME OF DELIVERY, UNSPECIFIED Status: Acute Current Visit: Yes (3) Gestational thrombocytopenia SNOMED Code(s): 851821726 Code(s): O99.119 - OTH DIS OF BLD/BLD-FORM ORG/IMMUN MECHNSM COMP PREG,UNSP TRI; D69.6 - THROMBOCYTOPENIA, UNSPECIFIED Status: Acute Current Visit: Yes Qualifiers: Trimester: third trimester Qualified Code(s): O99.113 - Other diseases of the blood and blood-forming organs and certain disorders involving the immune mechanism complicating , third trimester; D69.6 - Thrombocytopenia, unspecified (4) Vaginal delivery SNOMED Code(s): 443876207 Code(s): O80 - ENCOUNTER FOR FULL-TERM UNCOMPLICATED DELIVERY Status: Acute Current Visit: Yes - Problem List Review Problem List Initiated/Reviewed/Updated: Yes - My Orders Last 24 Hours: My Active Orders 08/31/19 06:13 Patient Status [ADT] Routine Communication Order [RC] ASDIRECTED Notify Provider [RC] PFP Notify Provider [RC] PRN Peripheral IV Care [RC] . DIRECTED Vital Signs [RC] PER UNIT ROUTINE BLOOD BANK HOLD SPECIMEN [BBK] Stat Nalbuphine [Nubain] 10 mg IVPUSH Q2H PRN Sodium Chloride 0.9% [Saline Flush] 10 ml FLUSH ASDIRECTED PRN Electronic Heart Tones Ext w TOCO [WOMSER] Routine Electronic Heart Tones Internal [WOMSER] Per Unit Routine Peripheral IV Insertion Adult [OM.PC] Routine Resuscitation Status Routine 08/31/19 06:15 RAPID PLASMA REAGIN,RPR [CHEM] Routine Lactated Ringers [Ringers, Lactated] 1,000 ml IV ASDIRECTED Oxytocin/Lactated Ringers [Pitocin in LR 10 Units/1,000 ML] 10 unit in 1,000 ml IV .CONTINUOUS 08/31/19 15:32 Patient Status Manage Transfer [TRANSFER] Routine 08/31/19 Dinner Regular Diet [DIET] - Assessment Assessment:: PPD#0 - Plan Plan:: * Routine cares * Breast feeding * Discharge home in 1-2 days
[2019-08-31] MEDS ORDERED: Docusate Sodium 100 MG Cap PO PRN (16:23)
[2019-08-31] MEDS ORDERED: Witch Hazel Medicated Pads 40/Jar TOP PRN (16:23)
[2019-08-31] MEDS ORDERED: Benzocaine/Menthol 20%-0.5% Spray 56 GM Canister TOP PRN (16:23)
[2019-08-31] MEDS: Ibuprofen 600 MG Tab PO PRN (16:59)
[2019-08-31] MEDS: Acetaminophen 325 MG Tab PO PRN ×2 (16:59→21:19)
[2019-08-31] MEDS ORDERED: Acetaminophen/oxyCODONE 325-5 MG Tab PO ONE (19:57)
[2019-09-01] MEDS: Ibuprofen 600 MG Tab PO PRN ×3 (01:16→17:13)
--- NOTE | 2019-09-01 06:04 | PCM.PNPP ---
- General Info Date of Service: 09/01/19 Functional Status: Reports: Pain Controlled, Tolerating Diet, Ambulating, Urinating - Review of Systems General: Reports: No Symptoms Pulmonary: Reports: No Symptoms Cardiovascular: Reports: No Symptoms Gastrointestinal: Reports: No Symptoms Musculoskeletal: Reports: Other (some pubic bone pain) Neurological: Reports: No Symptoms - Patient Data Vital Signs - Most Recent: Last Vital Signs Temp 36.8 C 09/01/19 02:48 Pulse 65 09/01/19 02:48 Resp 14 09/01/19 02:48 BP 114/67 09/01/19 02:48 Pulse Ox 98 09/01/19 02:48 Weight - Most Recent: 78.29 kg I&O - Last 24 Hours: Intake & Output 08/31/19 08/31/19 09/01/19 14:59 22:59 06:59 Intake Total 1999 1499 Balance 1999 1499 Lab Results - Last 24 Hours: Laboratory Results - last 24 hr 08/31/19 08/31/19 08/31/19 Range/Units 06:15 06:15 06:15 WBC 9.57 (3.98-10.04) K/mm3 RBC 4.41 (3.98-5.22) M/mm3 Hgb 13.8 D (11.2-15.7) gm/dl Hct 41.3 (34.1-44.9) % MCV 93.7 (79.4-94.8) fl MCH 31.3 (25.6-32.2) pg MCHC 33.4 (32.2-35.5) g/dl RDW Std Deviation 42.5 (36.4-46.3) fL Plt Count 96 L (182-369) K/mm3 MPV 13.4 H (9.4-12.3) fl Neut % (Auto) 73.9 H (34.0-71.1) % Lymph % (Auto) 15.4 L (19.3-51.7) % [place] % (Auto) 9.9 (4.7-12.5) % Eos % (Auto) 0.2 L (0.7-5.8) Baso % (Auto) 0.1 (0.1-1.2) % Neut # (Auto) 7.07 H (1.56-6.13) K/mm3 Lymph # (Auto) 1.47 (1.18-3.74) K/mm3 [place] # (Auto) 0.95 H (0.24-0.36) K/mm3 Eos # (Auto) 0.02 L (0.04-0.36) K/mm3 Baso # (Auto) 0.01 (0.01-0.08) K/mm3 Manual Slide Review Abnormal smear RPR Non-reactive (NONREACTIVE) Blood Type O POSITIVE Gel Antibody Screen Negative Med Orders - Current: Current Medications Acetaminophen (Tylenol) 650 mg PO Q4H PRN PRN Reason: mild pain or fever Last Admin: 08/31/19 21:19 Dose: 650 mg Benzocaine/Menthol (Dermoplast Pain Relief [place]) 0 gm TOP ASDIRECTED PRN PRN Reason: Perineal Comfort Measure Last Admin: 08/31/19 17:01 Dose: 1 canister Docusate Sodium (Colace) 100 mg PO BID PRN PRN Reason: Constipation Last Admin: 08/31/19 16:59 Dose: 100 mg Ibuprofen (Motrin) 600 mg PO Q6H PRN PRN Reason: Mild pain or fever Last Admin: 09/01/19 01:16 Dose: 600 mg Witch [place]ch (Tucks) 1 pad TOP ASDIRECTED PRN PRN Reason: Perineal Comfort Measure Last Admin: 08/31/19 17:00 Dose: 1 jar Discontinued Medications Diphenhydramine HCl (Benadryl) 25 mg IVPUSH Q6H PRN PRN Reason: pruritis Ephedrine Sulfate (Ephedrine Sulfate) 5 mg IVPUSH ASDIRECTED PRN PRN Reason: Hypotension Fentanyl (Sublimaze) 100 mcg EPIDUR Q3H PRN PRN Reason: Pain Fentanyl/Bupivacaine HCl (Fentanyl/Bupivacaine/Ns 2 Mcg-0.125% 100 Ml) 100 ml EPIDUR ASDIRECTED PRN PRN Reason: Pain Lactated Ringer's (Ringers, Lactated) 1,000 mls @ 100 mls/hr IV ASDIRECTED REDD Last Admin: 08/31/19 12:31 Dose: 100 mls/hr Oxytocin/Lactated Ringer's (Pitocin In Lr 10 Units/1,000 Ml) 10 unit in 1,000 mls @ 500 mls/hr IV .CONTINUOUS REDD Last Admin: 08/31/19 14:26 Dose: 500 mls/hr Nalbuphine HCl (Nubain) 10 mg IVPUSH Q2H PRN PRN Reason: Pain Oxycodone/Acetaminophen (Percocet 325-5 Mg) 2 tab PO ONETIME ONE Stop: 08/31/19 19:58 Last Admin: 09/01/19 05:40 Dose: Not Given Sodium Chloride (Saline Flush) 10 ml FLUSH ASDIRECTED PRN PRN Reason: Keep Vein Open - Interaction Disposition, : [place] in Room with Family Interaction: Holding Feeding: Attempted ; Nursed Fair/Poor Support Person: - Recovery Exam Fundal Tone: Firm Fundal Level: 1 Fingerbreadths Below Umbilicus Fundal Placement: Midline Lochia Amount: Small Lochia Color: Rubra/Red Perineum Description: Intact, Minimal Bruising/Swelling, Edematous, Hemorrhoids Episiotomy/Laceration: None Bladder Status: Voiding Urinary Elimination: Voided - Exam General: Alert, Oriented, Cooperative GI/Abdominal Exam: Soft, Non-Tender Extremities: Normal Inspection Skin: Warm, Dry, Intact - Problem List & Annotations (1) 40 weeks gestation of SNOMED Code(s): 92282944 Code(s): Z3A.40 - 40 WEEKS GESTATION OF Status: Acute Current Visit: Yes (2) Normal labor SNOMED Code(s): 05279948 Code(s): O80 - ENCOUNTER FOR FULL-TERM UNCOMPLICATED DELIVERY; Z37.9 - OUTCOME OF DELIVERY, UNSPECIFIED Status: Acute Current Visit: Yes (3) Gestational thrombocytopenia SNOMED Code(s): 617133817 Code(s): O99.119 - OTH DIS OF BLD/BLD-FORM ORG/IMMUN MECHNSM COMP PREG,UNSP TRI; D69.6 - THROMBOCYTOPENIA, UNSPECIFIED Status: Acute Current Visit: Yes Qualifiers: Trimester: third trimester Qualified Code(s): O99.113 - Other diseases of the blood and blood-forming organs and certain disorders involving the immune mechanism complicating , third trimester; D69.6 - Thrombocytopenia, unspecified (4) Vaginal delivery SNOMED Code(s): 985449580 Code(s): O80 - ENCOUNTER FOR FULL-TERM UNCOMPLICATED DELIVERY Status: Acute Current Visit: Yes - Problem List Review Problem List Initiated/Reviewed/Updated: Yes - My Orders Last 24 Hours: My Active Orders 08/31/19 06:13 BLOOD BANK HOLD SPECIMEN [BBK] Stat Resuscitation Status Routine 08/31/19 16:23 Activity as Tolerated [RC] PER UNIT ROUTINE Vital Signs [RC] 03,09,15,21 Acetaminophen [Tylenol] 650 mg PO Q4H PRN Benzocaine/Menthol [Dermoplast Pain Relief [place]] See Dose Instructions TOP ASDIRECTED PRN Docusate Sodium [Colace] 100 mg PO BID PRN Ibuprofen [Motrin] 600 mg PO Q6H PRN witch Enoch [Tucks] 1 pad TOP ASDIRECTED PRN Assess Lochia [WOMSER] Per Unit Routine Assess Uterine Involution [WOMSER] Per Unit Routine Breast Pump [WOMSER] Per Unit Routine Heat Therapy [OM.PC] PRN Ice Therapy [OM.PC] Per Unit Routine Perineal Care [OM.PC] Per Unit Routine Peripheral IV Discontinue [OM.PC] Routine Sitz Bath [OM.PC] Per Unit Routine 08/31/19 Dinner Regular Diet [DIET] 09/01/19 16:23 Heat Therapy [OM.PC] PRN - Assessment Assessment:: PPD#1 - Plan Plan:: * Routine cares * Breast feeding * Will continue to work on pubic bone pain, if worsens could do trial of Percocet while in hospital * Discharge home today vs tomorrow
--- NOTE | 2019-09-01 09:03 | PCM48HPAN ---
Post Anesthesia Note - EVALUATION WITHIN 48HRS OF ANESTHETIC Vital Signs in Normal Range: Yes Patient Participated in Evaluation: Yes Respiratory Function Stable: Yes Airway Patent: Yes Cardiovascular Function Stable: Yes Hydration Status Stable: Yes Pain Control Satisfactory: Yes Nausea and Vomiting Control Satisfactory: Yes Mental Status Recovered: Yes Vital Signs: Last Vital Signs Temp 98.2 F 09/01/19 02:48 Pulse 65 09/01/19 02:48 Resp 14 09/01/19 02:48 BP 114/67 09/01/19 02:48 Pulse Ox 98 09/01/19 02:48
[2019-09-01] MEDS: Acetaminophen 325 MG Tab PO PRN (12:15)
--- NOTE | 2019-09-01 18:16 | PCM.DCSUM1 ---
Discharge Summary - Discharge Data Discharge Date: 09/01/19 Discharge Disposition: Home, Self-Care 01 Condition: Good - Referral to Home Health Primary Care Physician: Mena Diaz MD - Discharge Diagnosis/Problem(s) (1) 40 weeks gestation of SNOMED Code(s): 75129867 ICD Code: Z3A.40 - 40 WEEKS GESTATION OF Status: Acute (2) Normal labor SNOMED Code(s): 89853012 ICD Code: O80 - ENCOUNTER FOR FULL-TERM UNCOMPLICATED DELIVERY; Z37.9 - OUTCOME OF DELIVERY, UNSPECIFIED Status: Acute (3) Gestational thrombocytopenia SNOMED Code(s): 627414560 ICD Code: O99.119 - OTH DIS OF BLD/BLD-FORM ORG/IMMUN MECHNSM COMP PREG,UNSP TRI; D69.6 - THROMBOCYTOPENIA, UNSPECIFIED Status: Acute Qualifiers: Trimester: third trimester Qualified Code(s): O99.113 - Other diseases of the blood and blood-forming organs and certain disorders involving the immune mechanism complicating , third trimester; D69.6 - Thrombocytopenia, unspecified (4) Vaginal delivery SNOMED Code(s): 342299868 ICD Code: O80 - ENCOUNTER FOR FULL-TERM UNCOMPLICATED DELIVERY Status: Acute - Patient Summary/Data Complications: None Consults: None Recommended Follow-up Testing/Procedures: Follow up in 3 weeks for a check Hospital Course: 29 y/o at 40 4/7 wks presented in labor. Progressed. well to complete dilation and underwent an uncomplicated . See delivery note. did well and was discharged home on PPD#1 - Patient Instructions Diet: Regular Diet as Tolerated Activity: As Tolerated Activity, Other: Pelvic rest for 6 weeks Driving: May Drive Today Showering/Bathing: May Shower Showering/Bathing, Other: may bathe Notify Provider of: Fever, Increased Pain, Swelling and Redness, Drainage, Nausea and/or Vomiting - Discharge Plan *PRESCRIPTION DRUG MONITORING PROGRAM REVIEWED*: No *COPY OF PRESCRIPTION DRUG MONITORING REPORT IN PATIENT SEJAL: No Home Medications: Home Meds L.acidoph,Paracasei, B.lactis [Probiotic] 1 cap PO DAILY 12/07/17 [History] No122/Iron/Folic Acid [ Multi Tablet] 1 each PO DAILY 12/07/17 [History] Acetaminophen [Tylenol] 650 mg PO Q4H PRN tablet 09/01/19 [Rx] Docusate Sodium [Colace] 100 mg PO BID PRN cap 09/01/19 [Rx] Ibuprofen [Motrin] 600 mg PO Q6H PRN tablet 09/01/19 [Rx] Patient Handouts: Care After Vaginal Delivery Referrals: Mena Diaz MD [Primary Care Provider] - (3 weeks for check ) - Discharge Summary/Plan Comment DC Time >30 min.: No - Patient Data Vitals - Most Recent: Last Vital Signs Temp 36.7 C 09/01/19 07:48 Pulse 70 09/01/19 07:48 Resp 14 09/01/19 07:48 BP 122/71 09/01/19 07:48 Pulse Ox 99 09/01/19 07:48 Weight - Most Recent: 78.29 kg I&O - Last 24 hours: Intake & Output 09/01/19 09/01/19 09/01/19 06:59 14:59 22:59 Intake Total 120 Balance 120 Lab Results - Last 24 hrs: Laboratory Results - last 24 hr 08/31/19 Range/Units 06:15 RPR Non-reactive (NONREACTIVE) Med Orders - Current: Current Medications Acetaminophen (Tylenol) 650 mg PO Q4H PRN PRN Reason: mild pain or fever Last Admin: 09/01/19 12:15 Dose: 650 mg Benzocaine/Menthol (Dermoplast Pain Relief Allen) 0 gm TOP ASDIRECTED PRN PRN Reason: Perineal Comfort Measure Last Admin: 08/31/19 17:01 Dose: 1 canister Docusate Sodium (Colace) 100 mg PO BID PRN PRN Reason: Constipation Last Admin: 08/31/19 16:59 Dose: 100 mg Ibuprofen (Motrin) 600 mg PO Q6H PRN PRN Reason: Mild pain or fever Last Admin: 09/01/19 17:13 Dose: 600 mg Witch Suzy (Tucks) 1 pad TOP ASDIRECTED PRN PRN Reason: Perineal Comfort Measure Last Admin: 08/31/19 17:00 Dose: 1 jar Discontinued Medications Bupivacaine HCl (Sensorcaine-Mpf 0.25%) 10 ml .ROUTE .STK-MED ONE Stop: 08/31/19 00:01 Diphenhydramine HCl (Benadryl) 25 mg IVPUSH Q6H PRN PRN Reason: pruritis Ephedrine Sulfate (Ephedrine Sulfate) 5 mg IVPUSH ASDIRECTED PRN PRN Reason: Hypotension Fentanyl (Sublimaze) 100 mcg EPIDUR Q3H PRN PRN Reason: Pain Fentanyl/Bupivacaine HCl (Fentanyl/Bupivacaine/Ns 2 Mcg-0.125% 100 Ml) 100 ml EPIDUR ASDIRECTED PRN PRN Reason: Pain Lactated Ringer's (Ringers, Lactated) 1,000 mls @ 100 mls/hr IV ASDIRECTED REDD Last Admin: 08/31/19 12:31 Dose: 100 mls/hr Oxytocin/Lactated Ringer's (Pitocin In Lr 10 Units/1,000 Ml) 10 unit in 1,000 mls @ 500 mls/hr IV .CONTINUOUS REDD Last Admin: 08/31/19 14:26 Dose: 500 mls/hr Nalbuphine HCl (Nubain) 10 mg IVPUSH Q2H PRN PRN Reason: Pain Oxycodone/Acetaminophen (Percocet 325-5 Mg) 2 tab PO ONETIME ONE Stop: 08/31/19 19:58 Last Admin: 09/01/19 05:40 Dose: Not Given Sodium Chloride (Saline Flush) 10 ml FLUSH ASDIRECTED PRN PRN Reason: Keep Vein Open
[2019-09-01 20:07] VITALS: BP 106/88; PULSE 75
== END 2019-09-01 19:45 | disposition home or self-care (01) | DRG 806 ==
LOC: JD.OBCHECK 05:34 → JD.OB 05:41 → JD.OBCHECK 05:42 → JD.OB 05:43 → OBSVTOIN 14:26 → JD.OB 14:27
PROVIDERS: ADMIT Obstetrics & Gynecology; ATTEND Obstetrics & Gynecology
PROC: 10E0XZZ Delivery of Products of Conception, External Approach (ICD-10-PCS; principal; 2019-08-31)
PROC: 10907ZC Drainage of Amniotic Fluid, Therapeutic from Products of Conception, Via Natural or Artificial Opening (ICD-10-PCS; 2019-08-31)
PROC: 3E0R3BZ Introduction of Anesthetic Agent into Spinal Canal, Percutaneous Approach (ICD-10-PCS; 2019-08-31)
DX: O48.0 Post-term pregnancy (principal); O99.12 Other diseases of the blood and blood-forming organs and certain disorders involving the immune mechanism complicating childbirth; Z37.0 Single live birth; D69.6 Thrombocytopenia, unspecified; Z3A.40 40 weeks gestation of pregnancy
CPT/HCPCS: 01967; 36415; 59025; 59409; 85025; 86592; 86850; 86900; 86901; A9270-GY; J2590; J3490; J7120

== ENCOUNTER 2021-10-11 17:30 | Emergency (ER) | payer OTHER ==
[2021-10-11 17:44] VITALS: BP 117/70; PULSE 103
[2021-10-11] MEDS ORDERED: Ondansetron 4 MG Tab.DIS PO ONE (17:56)
[2021-10-11] MEDS ORDERED: Sodium Chloride 0.9% 10 ML Syringe FLUSH PRN (18:08)
[2021-10-11] MEDS ORDERED: Sodium Chloride 0.9% 1,000 ML IV ONE (18:08)
[2021-10-11] MEDS ORDERED: cefTRIAXone 2 GM in Sodium Chloride 0.9% 100 ML IV ONE (18:32)
[2021-10-11] MEDS ORDERED: Ketorolac 30 MG/ML SDV IVPUSH ONE (19:05)
== END 2021-10-11 20:03 | disposition home or self-care (01) ==
LOC: JD.ED 17:30
DX: N12 Tubulo-interstitial nephritis, not specified as acute or chronic (principal); R11.2 Nausea with vomiting, unspecified; Z86.16 Personal history of COVID-19
CPT/HCPCS: 36415; 80053; 81001; 81025; 85025; 86140; 87086; 96365; 96375; 99284; A9270; J0696; J1885; J3490; J7030; 87088; 87186

== ENCOUNTER 2023-11-27 02:34 | Inpatient (IN) | payer OTHER ==
[2023-11-27] MEDS ORDERED: Lidocaine 1% 50 ML MDV INJECT PRN (03:24)
[2023-11-27] MEDS ORDERED: Calcium Carbonate 500 MG Tab.Chew PO PRN (03:24)
[2023-11-27] MEDS ORDERED: Acetaminophen 325 MG Tab PO PRN (03:24)
[2023-11-27] MEDS ORDERED: Nalbuphine 10 MG/1 ML Vial IVPUSH PRN (03:24)
[2023-11-27] MEDS ORDERED: Lactated Ringers 1,000 ML IV SCH (03:30)
[2023-11-27] MEDS ORDERED: Oxytocin/0.9 % Sodium Chloride 30 UNIT/500 ML BAG IV SCH (03:30)
[2023-11-27 03:48] LABS: BASOPHILS PERCENT AUTO 0.1 % (0.0-1.0); EOSINOPHILS PERCENT AUTO 0.1 % (0.0-6.0); HEMATOCRIT 37.7 % (37.0-47.0); IMMATURE GRAN ABSOLUTE AUTO 0.08 K/mm3 (0.00-0.05); IMMATURE GRAN PERCENT AUTO 1.1 % (0.0-0.4); LYMPHOCYTES ABSOLUTE AUTO 1.6 K/mm3 (1.0-4.8); LYMPHOCYTES PERCENT AUTO 22.7 % (24.0-44.0); MEAN CORPUSCULAR HEMOGLOBIN 32.1 pg (28.0-32.0); MEAN CORPUSCULAR HGB CONC 34.5 g/dl (32.0-36.0); MEAN CORPUSCULAR VOLUME 93.1 fl (83.0-99.0); MONOCYTES ABSOLUTE AUTO 0.6 K/mm3 (0.0-0.8); MONOCYTES PERCENT AUTO 8.3 % (0.0-8.0); NEUTROPHILS ABSOLUTE AUTO 4.7 K/mm3 (1.8-7.7); NEUTROPHILS PERCENT AUTO 67.7 % (41.0-71.0); PLATELET COUNT,PLT 98 K/mm3 (150-400); RED BLOOD CELL COUNT 4.05 M/mm3 (4.10-5.30); WHITE BLOOD CELL COUNT,WBC 6.97 K/mm3 (3.9-11.3)
[2023-11-27] MEDS: Ondansetron 4 MG/2 ML SDV IVPUSH PRN (05:09)
[2023-11-27 05:14] LABS: SLIDE REVIEW ABNORMAL SMEAR
[2023-11-27] MEDS: Acetaminophen 325 MG Tab PO SCH (10:13)
[2023-11-27] MEDS: Witch Hazel Medicated Pads 40/Jar TOP PRN (10:14)
[2023-11-27] MEDS: Benzocaine/Menthol 20%-0.5% Spray 78 GM Cannister TOP PRN (10:14)
[2023-11-27] MEDS: Oxytocin/0.9 % Sodium Chloride 30 UNIT/500 ML BAG IV SCH (13:46)
[2023-11-27] MEDS: Ibuprofen 600 MG Tab PO PRN (13:48)
[2023-11-28 15:09] VITALS: BP 107/66; PULSE 55
== END 2023-11-28 14:55 | disposition home or self-care (01) | DRG 806 ==
LOC: JD.OBCHECK 02:34 → JD.OB 02:38 → JD.OBCHECK 03:23 → JD.OB 03:24 → OBSVTOIN 08:05 → JD.OB 08:06
PROVIDERS: ADMIT Obstetrics & Gynecology; ATTEND Obstetrics & Gynecology
PROC: 10E0XZZ Delivery of Products of Conception, External Approach (ICD-10-PCS; principal; 2023-11-27)
DX: O48.0 Post-term pregnancy (principal); O99.12 Other diseases of the blood and blood-forming organs and certain disorders involving the immune mechanism complicating childbirth; Z37.0 Single live birth; D69.6 Thrombocytopenia, unspecified; Z3A.40 40 weeks gestation of pregnancy; O42.02 Full-term premature rupture of membranes, onset of labor within 24 hours of rupture; O77.0 Labor and delivery complicated by meconium in amniotic fluid
CPT/HCPCS: 36415; 59025; 59409; 85025; 86592; 86850; 86900; 86901; A9270-GY; J2405; J7999